=== PATIENT | male | born 2000 | race Caucasian/White ===

== ENCOUNTER 2023-03-10 20:25 | Observation (INO) ==
[2023-03-10] MEDS ORDERED: IOPAMIDOL 100 ML BOTTLE IV ONE (20:26)
[2023-03-10] MEDS ORDERED: 0.9 % SODIUM CHLORIDE 1,000 ML IV ONE (20:32)
[2023-03-10] MEDS ORDERED: ONDANSETRON 4 MG/2 ML VIAL IV ONE (20:32)
[2023-03-10] MEDS ORDERED: DEXAMETHASONE 10 MG/ML VIAL IV ONE (20:32)
[2023-03-10 21:33] LABS: ALT/SGPT 476 U/L (<40); AST/SGOT 392 U/L (<40); Albumin 3.2 gm/dL (3.2-5.2); Albumin/Globulin Ratio 0.8 (1.0-2.3); Alkaline Phosphatase 98 U/L (39-117); Bilirubin,Total 0.5 mg/dL (0.1-1.0); Blood Urea Nitrogen 19 mg/dL (6-20); Calcium 8.6 mg/dL (8.6-10.4); Carbon Dioxide 24 mmol/L (22-30); Chloride 102 mmol/L (96-108); Globulin 3.8 gm/dL (2.2-3.7); Glomerular Filtration Rate 105; Glucose 118 mg/dL (70-105)
[2023-03-10] MEDS ORDERED: cefTRIAXone 1 GM VIAL IV ONE (21:52)
[2023-03-10 21:53] LABS: Basophils # (Auto) 0.01 K/mcL (0.00-0.30); Basophils % (Auto) 0.2 % (0.0-2.0); Eosinophils # (Auto) 0 K/mcL (0.00-0.70); Eosinophils % (Auto) 0 % (0.0-7.0); Hematocrit 43.7 % (40.1-51.0); Hemoglobin 14.5 g/dL (13.7-17.5); Lymphocytes # (Auto) 1.16 K/mcL (1.50-4.80); Lymphocytes % (Auto) 17.6 % (15.5-49.0); Mean Cell Volume 92.4 fL (80.0-100.0); Mean Corpuscular HGB Conc 33.2 g/dL (31.0-36.0); Mean Platelet Volume 9.5 fL (8.8-12.5); Monocytes # (Auto) 0.37 K/mcL (0.10-0.90); Monocytes % (Auto) 5.6 % (1.0-12.0); Neutrophils % (Auto) 76.1 % (38.0-78.0); Platelet Count 235 K/mcL (140-440); RBC 4.73 M/mcL (4.63-6.08); Red Cell Distribution Width 12.2 % (11.5-14.5); WBC 6.6 K/mcL (4.5-11.0)
[2023-03-10] MEDS ORDERED: OSELTAMIVIR PHOSPHATE 75 MG CAPSULE PO ONE (23:20)
[2023-03-11] MEDS ORDERED: ACETAMINOPHEN 325 MG TABLET PO PRN (00:02)
[2023-03-11] MEDS ORDERED: ONDANSETRON 4 MG/2 ML VIAL IV PRN (00:02)
[2023-03-11] MEDS: 0.9 % SODIUM CHLORIDE 1,000 ML IV SCH ×2 (00:26→10:42)
[2023-03-11] MEDS ORDERED: HYDROcodone/APAP 5/325MG TABLET PO ONE ×2 (00:39→03:57)
[2023-03-11] MEDS ORDERED: BENZOCAINE/MENTHOL 1 LOZENGE PO ONE (00:39)
[2023-03-11] MEDS: HYDROcodone/APAP 5/325MG TABLET PO PRN ×4 (00:41→19:51)
[2023-03-11] MEDS: BENZOCAINE/MENTHOL 1 LOZENGE PO PRN ×2 (00:42→07:36)
[2023-03-11] MEDS: 0.9 % SODIUM CHLORIDE 10 ML SYRINGE IV SCH ×3 (06:10→21:59)
[2023-03-11 06:22] LABS: Basophils # (Auto) 0.01 K/mcL (0.00-0.30); Basophils % (Auto) 0.2 % (0.0-2.0); Eosinophils # (Auto) 0 K/mcL (0.00-0.70); Eosinophils % (Auto) 0 % (0.0-7.0); Hematocrit 40.8 % (40.1-51.0); Hemoglobin 13.7 g/dL (13.7-17.5); Lymphocytes # (Auto) 1.17 K/mcL (1.50-4.80); Mean Cell Volume 92.5 fL (80.0-100.0); Mean Corpuscular HGB Conc 33.6 g/dL (31.0-36.0); Mean Platelet Volume 9.5 fL (8.8-12.5); Monocytes # (Auto) 0.07 K/mcL (0.10-0.90); Monocytes % (Auto) 1.4 % (1.0-12.0); Platelet Count 262 K/mcL (140-440); RBC 4.41 M/mcL (4.63-6.08); WBC 4.9 K/mcL (4.5-11.0)
[2023-03-11 06:43] LABS: Blood Urea Nitrogen 19 mg/dL (6-20); Calcium 8.2 mg/dL (8.6-10.4); Carbon Dioxide 25 mmol/L (22-30); Chloride 101 mmol/L (96-108); Glomerular Filtration Rate 125; Glucose 142 mg/dL (70-105)
[2023-03-11] MEDS ORDERED: cefTRIAXone 1 GM VIAL IV SCH (13:00)
[2023-03-11] MEDS ORDERED: OSELTAMIVIR PHOSPHATE 75 MG CAPSULE PO SCH (13:15)
[2023-03-11] MEDS: AMPICILLIN SODIUM/SULBACTAM NA 3 GM in 0.9 % SODIUM CHLORIDE 100 ML IV SCH ×2 (13:29→19:50)
[2023-03-11] MEDS: DEXAMETHASONE 10 MG/ML VIAL IV SCH (20:40)
[2023-03-11] MEDS: OSELTAMIVIR PHOSPHATE 75 MG CAPSULE PO SCH (20:42)
[2023-03-12] MEDS: AMPICILLIN SODIUM/SULBACTAM NA 3 GM in 0.9 % SODIUM CHLORIDE 100 ML IV SCH ×2 (00:16→07:22)
[2023-03-12] MEDS: 0.9 % SODIUM CHLORIDE 10 ML SYRINGE IV SCH (05:13)
[2023-03-12] MEDS: HYDROcodone/APAP 5/325MG TABLET PO PRN (05:30)
[2023-03-12 06:37] LABS: Basophils # (Auto) 0.01 K/mcL (0.00-0.30); Basophils % (Auto) 0.1 % (0.0-2.0); Eosinophils # (Auto) 0 K/mcL (0.00-0.70); Eosinophils % (Auto) 0 % (0.0-7.0); Hematocrit 42.6 % (40.1-51.0); Hemoglobin 14.1 g/dL (13.7-17.5); Lymphocytes # (Auto) 1.62 K/mcL (1.50-4.80); Lymphocytes % (Auto) 24.1 % (15.5-49.0); Mean Cell Volume 92.6 fL (80.0-100.0); Mean Corpuscular HGB Conc 33.1 g/dL (31.0-36.0); Mean Platelet Volume 9.5 fL (8.8-12.5); Monocytes # (Auto) 0.26 K/mcL (0.10-0.90); Monocytes % (Auto) 3.9 % (1.0-12.0); Platelet Count 270 K/mcL (140-440); Red Cell Distribution Width 12.1 % (11.5-14.5); WBC 6.7 K/mcL (4.5-11.0)
[2023-03-12 06:58] LABS: Blood Urea Nitrogen 15 mg/dL (6-20); Calcium 8.4 mg/dL (8.6-10.4); Carbon Dioxide 27 mmol/L (22-30); Chloride 102 mmol/L (96-108); Glomerular Filtration Rate 125; Glucose 144 mg/dL (70-105)
[2023-03-12] MEDS: DEXAMETHASONE 10 MG/ML VIAL IV SCH (07:22)
[2023-03-12] MEDS: OSELTAMIVIR PHOSPHATE 75 MG CAPSULE PO SCH (08:10)
== END 2023-03-12 12:14 | disposition home or self-care (01) ==
LOC: ED 20:25 → MEDSUR 20:25
PROVIDERS: ADMIT Internal Medicine; ATTEND Internal Medicine